=== PATIENT | female | born 2000 | race Caucasian/White ===

== ENCOUNTER → 2020-09-12 | Outpatient (CLI) | payer BC | LOC: RAD 08:57 | DX: R10.2 Pelvic and perineal pain (principal); R10.9 Unspecified abdominal pain ==

== ENCOUNTER → 2020-09-26 | Outpatient (CLI) | payer BC | LOC: RAD 15:55 | DX: R10.11 Right upper quadrant pain (principal) | CPT/HCPCS: Q9967 ==